=== PATIENT | male | born 1940 | race Two or more races ===

== ENCOUNTER 2017-02-23 14:19 | Emergency (ER) | payer SELFPAY ==
[~2017-02-23] VITALS: Ht 170.2 cm; Wt 86.2 kg
[2017-02-23 14:20] VITALS: BP 139/77
== END 2017-02-24 04:34 | disposition left against medical advice (07) ==
LOC: ER 14:19
DX: M79.1 Myalgia (principal); Z53.21 Procedure and treatment not carried out due to patient leaving prior to being seen by health care provider
CPT/HCPCS: 93005